=== PATIENT | male | born 1955 | race Caucasian/White ===

== ENCOUNTER → 2017-02-04 | Day surgery (SDC) | payer OTHER, MEDICARE ==
[~2017-02-04] MED LIST: ALTACE PO; AMARYL PO; AMLODIPINE BESYL5 MG PO; CELECOXIB200 MG PO; CYMBALTA30 M1 PO; ENDOCET 5-3251 EACH PO; LEVEMIR FL100 UNIT/1 SUBQ; LIPITOR80 MG PO; MEDROL4 MG/DOSE- PO; METFORMIN PO; METOPROLOL SUC200 MG PO; PRILOSEC PO; VALSARTAN-HCTZ1 EAC3 PO
--- NOTE | ~2017-02-04 | OR ---
Unit #: [id number] #: [id number] Patient: VANESSA CAMPBELL [id number] [address] [place], [place] [address] [id number] O MR#: [id number] NAME: VANESSA CAMPBELL ROOM: Date of Procedure: 02/04/2017 Admission Date: 02/04/2017 Surgeon: Heraclio Hernandez M.D. : 1955 Attending Physician: Heraclio Hernandez M.D. Primary Care Physician: Lance Howell M.D. OPERATIVE REPORT PREOPERATIVE DIAGNOSES 1. Neck pain. 2. Cervical facet disease. POSTOPERATIVE DIAGNOSES 1. Neck pain. 2. Cervical facet disease. PROCEDURE PERFORMED Diagnostic and therapeutic cervical facet injections at C3-4 and C4-5 levels. INDICATIONS FOR PROCEDURE The patient is a 62-year-old male with neck and periscapular pain bilaterally, previously trialled with epidural steroids which did not give him any help. He has had some issues with his shoulders. It is unclear as to whether or not this is the etiology of his pain. It was felt that it might be due to cervical spine, so diagnostic and therapeutic facet injections were requested. The patient had injections done at the C5-6 and C6-7 levels about 6 weeks ago. This has not resulted in a short or long-term improvement. We are going to proceed with a repeat injections at C3-4 and C4-5. DESCRIPTION OF PROCEDURE The patient was placed in a seated position. Standard monitors were applied. Sterile prep and drape of the cervical area was performed. The skin then overlying the right side at C3-4 and C4-5 facet joints were localized with 1% lidocaine. A 22-gauge Quincke point spinal needle was then advanced with fluoroscopic guidance to bring the needle tip from the edge of these respective facet joints. A dose then of 1 mL of a mixture of 80 mg of Depo-Medrol and 3 mL of 0.25% bupivacaine were deposited, 0.5 mL in the joint and 0.5 mL just outside of the joint. The patient tolerated this part of procedure well. The needles were flushed and removed. The exact same procedure was then repeated on the left at the left C3-4 and C4-5 facet joints again after confirming proper positioning with fluoroscopic guidance with the needle tip within the facet joint. A dose of 1 mL of the previously mentioned mixture was used, 0.5 mL and 0.5 mL outside the joint. Dictated by... Heraclio Hernandez M.D. Unit #: [id number] #: [id number] Patient: VANESSA CAMPBELL LHP/modl TD: 02/05/2017 08:02 JOB #: [id number] CC: Tj Paniagua M.D. OPERATIVE REPORT X Heraclio Hernandez MD X PROCEDURE OPERATIVE NOTE
== END | disposition home or self-care (01) ==
LOC: CCSC 11:12
DX: M47.812 Spondylosis without myelopathy or radiculopathy, cervical region (principal)
CPT/HCPCS: J1040; J2250